=== PATIENT | male | born 1975 | race Caucasian/White ===

== ENCOUNTER 2024-06-22 18:32 | Emergency (ER) | payer MEDICAID, OTHER ==
[~2024-06-22] VITALS: Ht 188 cm; Wt 72.6 kg
--- NOTE | 2024-06-22 18:45 | ECG ---
[facility] Test Date: 2024-06-22 Test Time: 18:30:12 Pat Name: ELLE GARCIA Department: ER Room: [address] [place] [address] Gender: M Microbiological Analyst: TRACY : 1975 Requested By: MANUELA JUÁREZ Order Number: [id number] Reading MD: Nish Barbour Measurements Intervals [place] Rate: 101 P: 51 CO: 134 QRS: 26 QRSD: 110 T: 77 QT: 362 QTc: 470 Interpretive Statements Sinus tachycardia Electronically Signed On 06-27-2024 7:55:38 PDT by Nish Barbour Please click the below link to view image of tracing.
[2024-06-22] MEDS ORDERED: ONDANSETRON HCL 4 MG/2 ML VIAL IV ONE (19:00)
--- NOTE | 2024-06-22 19:24 | ED.PDOC ---
History of Present Illness HPI Comments This is a 49-year-old male who comes to the ED by EMS with chief complain of generalized weakness and hypotension. He has a past medical history relevant for Crohn's disease. Patient is a poor historian. Information was also gathered from his . They state that the patient has been experiencing worsening generalized weakness since last couple of weeks, he has had low appetite, nausea, vomiting, overall pain, shortness of breath at rest, also associated with chills, however, today he could not stand up due to the weakness that he was experiencing, he will also mentioned in having left hand pain as well as bilateral leg pain. Patient is not taking any medication for Crohn's disease since 2019, most of his previous abdominal surgeries were down the hill. Patient currently denies any chest pain, fevers. Time Seen by MD: 18:53 Reviewed Notes: Nurses Notes Allergies: Coded Allergies: NO KNOWN ALLERGIES (Unverified , 08/18/10) Information Source: Patient Mode of Arrival: EMS Severity: Severe Timing: Days Duration: Since onset Past Medical History Past Medical History (Other): Crohn's disease Surgical History (Other): Multiple abdominal surgeries due to complications of Crohn disease, last one was on ileostomy in 2012 Family History Family History: Reviewed,noncontributory to illness Social History Smoker: Non-Smoker Alcohol: Denies ETOH Use Drugs: Denies Drug Use Constitutional: reports: chills, fatigue, malaise, weakness; denies: diaphoresis, fever, sweats, others EENTM: denies: blurred vision, double vision, ear bleeding, ear discharge, ear drainage, ear pain, ear ringing, eye pain, eye redness, hearing loss, mouth pain, mouth swelling, nasal discharge, nose bleeding, nose congestion, nose pain, photophobia, tearing, throat pain, throat swelling, voice changes, others Respiratory: reports: SOB at rest; denies: cough, hemoptysis, orthopnea, shortness of breath, SOB with excertion, stridor, wheezing, others Cardiovascular: denies: chest pain, dizzy spells, diaphoresis, Dyspnea on exertion, edema, irregular heart beat, left arm pain, lightheadedness, palpitations, PND, syncope, others Gastrointestinal: reports: abdomen distended, abdominal pain, nausea, poor appetite, poor fluid intake, vomiting; denies: blood streaked bowels, constipated, diarrhea, dysphagia, difficulty swallowing, hematemesis, melena, rectal bleeding, rectal pain, others Genitourinary: denies: burning, dysuria, flank pain, frequency, hematuria, incontinence, penile discharge, penile sore, pain, testicle pain, testicle swel ling, urgency, others Neurological: denies: dizziness, fainting, headache, left sided numbness, left sided weakness, numbness, paresthesia, pre-existing deficit, right sided numbness, right sided weakness, seizure, speech problems, tingling, tremors, weakness, others Musculoskeletal: denies: back pain, gout, joint pain, joint swelling, muscle pain, muscle stiffness, neck pain, others Integumetry: reports: dryness, lesions, rash, wounds; denies: bruises, change in color, change in hair/nails, laceration, lumps, others Allergic/Immunocompromised: denies: Difficulty Healing, Frequent Infections, Hives, Itching, others Hematologic/Lymphatic: denies: anemia, blood clots, easy bleeding, easy bruisin g, swollen glands, others Endocrine: denies: excessive hunger, excessive sweating, excessive thirst, excessive urination, flushing, intolerance to cold, intolerance to heat, unexplained weight gain, unexplained weight loss, others Physical Exam General Appearance: Cachectic, Moderate Distress HEENT: Normal ENT Inspection, Pharynx Normal, TMs Normal Neck: Full Range of Motion, Non-Tender, Normal, Normal Inspection Respiratory: Chest Non-Tender, Lungs Clear, No Accessory Muscle Use, No Respiratory Distress, Normal Breath Sounds Cardiovascular: No Edema, No JVD, No Murmur, No Gallop, Normal Peripheral Pulses, Regular Rate/Rhythm Breast Exam: Deferred Gastrointestinal: Abnormal Bowel Sounds, Diffuse, Distended, No Organomegaly, No Pulsatile Mass, Soft, Tenderness, Other (Ileostomy) Genitalia: Deferred Pelvic: Deferred Rectal: Deferred Extremities: Calf tenderness, Decreased range of motion, Normal capillary refill, No pedal edema, Tender Neurologic: Abnormal Gait, Dizziness Cerebellar Function: NOT DONE Reflexes: NOT DONE Skin: Dry, Rash, Warm Lymphatic: No Adenopathy Was a procedure done? Was a procedure done?: No Differential Dx Considerations may include: Sepsis, colitis, IBD flare, UTI, bacteremia, cellulitis, hypovolemia, gastroenteritis, X-Ray, Labs, Meds, VS Vital Signs Date Time Temp Pulse Resp B/P (MAP) Pulse Ox O2 Delivery O2 Flow Rate FiO2 06/22/24 18:33 101 Lab Test 06/22/24 19:10 Range/Units White Blood Count 22.2 H 4.4-10.8 10^3/uL Red Blood Count 3.04 L 4.5-5.90 10^6/uL Hemoglobin 7.5 L 13.5-17.5 g/dL Hematocrit 23.8 L 41.0-53.0 % Mean Corpuscular Volume 78.5 L 80.0-100.0 fL Mean Corpuscular Hemoglobin 24.8 L 28.0-32.0 pg Mean Corpuscular Hemoglobin Concent 31.6 L 32.0-36.0 g/dL Red Cell Distribution Width 19.3 H 11.8-14.3 % Platelet Count 303 140-450 10^3/uL Mean Platelet Volume 6.8 L 6.9-10.8 fL Neutrophils (%) (Auto) 37.0-80.0 % Lymphocytes (%) (Auto) 10.0-50.0 % Monocytes (%) (Auto) 0.0-12.0 % Basophils (%) (Auto) 0.0-2.0 % Neutrophils # (Auto) 1.6-8.6 10 ^3/uL Lymphocytes # (Auto) 0.4-5.4 10 ^3/uL Monocytes # (Auto) 0-1.3 10 ^3/uL Differential Total Cells Counted Pending Neutrophils % (Manual) Pending Band Neutrophils % (Manual) Pending Lymphocytes % (Manual) Pending Monocytes % (Manual) Pending Eosinophils % (Manual) Pending Basophils % (Manual) Pending Metamyelocytes % (manual) Pending Myelocytes % (Manual) Pending Promyelocytes % (Manual) Pending Blast Cells % (Manual) Pending Reactive Lymphocytes Pending Platelet Estimate Pending Sodium Level 129 L 136-145 mmol/L Potassium Level 4.4 3.5-5.1 mmol/L Chloride Level 99 98-107 mmol/L Carbon Dioxide Level 17 L 20-31 mmol/L Anion Gap 13 5-15 Blood Urea Nitrogen 140 *H 9-23 mg/dL Creatinine 6.54 H 0.700-1.30 mg/dL Glomerular Filtration Rate Calc 10 >90 mL/min BUN/Creatinine Ratio 21.4 H 10.0-20.0 Serum Glucose 106 74-106 mg/dL Lactic Acid Level 1.9 0.4-2.0 mmol/L Calcium Level 8.5 L 8.7-10.4 mg/dL Troponin I High Sensitivity 7 </=54 ng/L B-Type Natriuretic Peptide 20.58 0-100 pg/mL Current Medications Medications (Trade) Dose Ordered Sig/Vargas Route Start Time Stop Time Status Last Admin Sodium Chloride 1,000 ml @ 1,000 mls/hr Q1H ONCE IV 06/22/24 19:00 06/22/24 19:59 DC 06/22/24 19:50 Patient was seen and examined, he appeared in moderate to severe distress due to overall pain, shortness of breath, generalized weakness. He has had some fluctuation in mentation, patient is likely septic, his blood pressure was on t he field around 50/40, on arrival to the ED was 81/58, later in dropped to 70s, 500 mL were given in the field, we will prescribe another L of NS, we will also order CBC, BMP, BNP, UA, UDS, blood culture, lactic acid, urine culture, chest x-ray, CT of the abdomen, IV Protonix, IV Zofran, we will continue [place]. [place] [address], hemoglobin is 7.5, GFR is 10, we will added another one L of NS, Rocephin IV as well, patient will be admitted for further management of sepsis Images Reviewed?: Images reviewed and evaluated by me Time of 1ST Reevaluation: 19:04 Reevaluation 1ST: Unchanged Time of 2ND Reevaluation: 20:14 Reevaluation 2ND: Unchanged Patient Education/Counseling: Diagnosis, Treatment Family Education/Counseling: Diagnosis, Treatment Departure 1 Departure Time of Disposition: 20:12 Impression: Primary Impression: Sepsis Additional Impressions: Hypovolemia Crohn's disease Severe anemia Disposition: 09 ADMITTED INPATIENT Condition: Guarded Critical Care Note Critical Care Time?: No Stability Stability form required: No Heart Score Heart Score: Heart Score Response (Comments) Value History Moderate Suspicious 1 EKG N/A 0 Age 45-64 1 Risk Factors No known risk factors 0 Troponin N/A 0 Total 2 CATHERINE VEGA RESIDENT Jun 22, 2024 19:24
[2024-06-22 19:26] LABS: Hematocrit 23.8 % (41.0-53.0); Hemoglobin 7.5 g/dL (13.5-17.5)
[2024-06-22 19:27] LABS: Mean Corpuscular Hemoglobin 24.8 pg (28.0-32.0); Mean Corpuscular Hgb Conc. 31.6 g/dL (32.0-36.0); Mean Corpuscular Volume 78.5 fL (80.0-100.0); Platelet Count (auto) 303 10^3/uL (140-450); Red Blood Cells 3.04 10^6/uL (4.5-5.90); Red Cell Distribution Width 19.3 % (11.8-14.3); White Blood Cell 22.2 10^3/uL (4.4-10.8)
[2024-06-22 19:36] LABS: Chloride 99 mmol/L (98-107); Potassium 4.4 mmol/L (3.5-5.1); Sodium 129 mmol/L (136-145)
[2024-06-22 19:37] LABS: Anion Gap 13 (5-15); Calcium 8.5 mg/dL (8.7-10.4); Carbon Dioxide 17 mmol/L (20-31)
[2024-06-22 19:42] LABS: BUN/Creatinine Ratio 21.4 (10.0-20.0); Glucose 106 mg/dL (74-106)
[2024-06-22] MEDS: SODIUM CHLORIDE 0.9% 1,000 ML IV ONE ×3 (19:50→22:30)
[2024-06-22 19:54] LABS: Band Neutrophils % (manual) 0; Basophils % (manual) 0 (0.0-2.0); Blast Cells 0; Eosinophils % (manual) 0 (0-7); Metamyelocytes % 0; Myelocytes % 0; Promyelocytes % 0; Reactive Lymphocytes 0
--- NOTE | 2024-06-22 19:54 | DVH ---
CHEST RADIOGRAPH Indication:sob Technique: Single frontal view of the chest was obtained Comparison: None FINDINGS: Lines and Tubes: None Lungs: No focal consolidation. Elevation of the left hemidiaphragm. Pleura: No effusion. No pneumothorax. Cardiomediastinal contours: Unremarkable Bones: No acute osseous abnormality. Old fracture deformity of right posterior 6th to 8th ribs IMPRESSION: No acute cardiopulmonary disease.
[2024-06-22 20:00] LABS: Blood Urea Nitrogen 140 mg/dL (9-23)
[2024-06-22] MEDS: PANTOPRAZOLE 40 MG/10 ML VIAL INJ IV ONE (20:09)
[2024-06-22 20:18] LABS: Lymphocytes % (manual) 6 (10.0-50.0); Monocytes % (manual) 4 (0-12); Platelet Estimate Adequate
[2024-06-22] MEDS: cefTRIAXone 1GM/50ML D5W 50 ML IV ONE (20:28)
--- NOTE | 2024-06-22 21:13 | DVH ---
Exam: CT CT AB PEL WO CON-NO ORAL OR IV History: abdominal pain, h/o ibd, ileostomy Comparison Study: None available at time of dictation. Technique: Multidetector CT of the abdomen and pelvis without contrast . Axial, coronal and sagittal multiplanar reformats were performed by the technologist on a separate workstation. Radiation Dose Information: CT Dose: CTDI volume is 9.33 mGy. Dose-length product is 602.48 mGy*cm Findings: The lung bases are clear. Elevated left hemidiaphragm . Partially visualized heart is unremarkable. Status post cholecystectomy. Mild splenomegaly with no focal splenic lesions. Liver, pancreas and adr enal glands unremarkable. Kidneys and ureters are unremarkable. Wall thickening of the urinary bladder with foci of air within the urinary bladder and mild fat stranding adjacent to the urinary bladder. Prostate is ill-defined m easuring about 1.9 x 2.9 cm . There is ill-defined area of soft tissue thickening with internal small cystic areas and foci of air extending from the right side of the prostate to the right perineal region. There is presacral absces s with foci of air and thickened wall measuring up to 3 by 11 cm with extension to the left of the re ctum and additional extension laterally to the left hip. Associated foci of air from the presacral ab scess extends to the left pelvic musculatures and left upper thigh There is scrotal wall edema with ill-defined hypodensity of the scrotal region and foci of air within the scrotal wall and right medial upper thigh. Midline buttock wall thickening with foci of air. Stomach is unremarkable. Small bowel loops are unremarkable. Appendix is not definitely visualized. Fluid-filled rectum. Minimal submucosal fatty infiltration of the proximal transverse colon and visua lized ascending colon with colostomy noted over the right lower abdominal quadrant. There is parastom al hernia containing small bowel loop without evidence of obstruction. No evidence of aortic aneurysm. Multiple subcentimeter mediastinal lymph nodes which may be reactive. Small fat containing paraumbilical hernia. The soft tissues unremarkable. Mild fat stranding with int ernal hyperdensities of the left lateral pelvis and hip with mild soft tissue edema of the upper thig hs mild edema posterior to the sacrum. No destructive osseous lesions are noted. IMPRESSION: Wall thickening of the urinary bladder with adjacent fat stranding. Recommend correlation with urinal ysisfor cystitis. Foci of air of the anterior urinary bladder which may be iatrogenic. Correlate for recent instrumentation. Presacral abscess with wall thickening extending to the left of the rectum. A fistulous tract can no t be excluded. There is additional lateral extension of the presacral abscess to the left hip region with subcutaneous air extending to the left lateral pelvic musculatures, left hip musculatures and le ft lateral upper thigh musculature. Ill-defined abscess wall thickening to the right of the prostate extending inferiorly to the perineal region. Scrotal soft tissue edema with foci of air within the wall. Diltiazem fascitis is within the differential. Right lower abdominal quadrant colostomy with parastomal hernia containing small bowel segment withou t evidence of obstruction.
[2024-06-22] MEDS: LORazepam 2MG/ML-1ML VIAL IV ONE (21:44)
[2024-06-22] MEDS ORDERED: NITROGLYCERIN 0.4 MG SL TAB SL PRN (22:30)
[2024-06-22] MEDS ORDERED: SODIUM CHLORIDE 0.9% 1,000 ML IV SCH (22:30)
[2024-06-22] MEDS ORDERED: ONDANSETRON HCL 4 MG/2 ML VIAL IV PRN (22:30)
[2024-06-22] MEDS ORDERED: HYDROcodone-ACET 5/325MG TAB PO PRN (22:30)
[2024-06-22] MEDS ORDERED: MORPHINE SULFATE INJ 2 MG/ml SYRG IV PRN ×2 (22:30)
[2024-06-22] MEDS ORDERED: ACETAMINOPHEN 325 MG TAB PO PRN (22:30)
--- NOTE | 2024-06-22 22:52 | DVHHPRES ---
History of Present Illness Resident Creating Document: LEVI RIVERO RESIDENT History of Present Illness This is a 49-year-old male who comes to the ED by EMS with chief complain of generalized weakness and hypotension. He has a past medical history relevant for Crohn's disease. Patient is a poor historian. Information was also gathered from his . They state that the patient has been experiencing worsening generalized weakness since last couple of weeks, he has had low appetite, nausea, vomiting, overall pain, shortness of breath at rest, also associated with chills, however, today he could not stand up due to the weakness that he was experiencing, he was also mentioned in having left hand pain as well as bilateral leg pain. Patient is not taking any medication for Crohn's disease since 2019, most of his previous abdominal surgeries were down the hill. Patient currently denies any chest pain, fevers. Past Medical History Crohn's disease Past Surgical History Multiple abdominal surgeries due to complications of Crohn disease, last one was on ileostomy in 2012 Smoke: No ALCOHOL: none Drugs: None Lives: with Family Review of Systems Constitutional: Yes: Chills, Weakness; No: Fever, Sweats, Malaise, Other Eyes: No: Pain, Vision change, Conjunctivae inflammation, Eyelid inflammation, Other, Redness ENT: No: Ear pain, Ear discharge, Nose pain, Nose discharge, Nose congestion, Mouth pain, Mouth swelling, Throat pain, Throat swelling, Other Respiratory: Shortness of breath; No: Cough, Dry, SOB with excertion, Wheezing, Hemoptysis, Pleuritic Pain, Sputum, Wheezing, Other Cardiovascular: No: Chest Pain, Palpitations, Orthopnea, Paroxysmal Noc. Dyspnea, Edema, Lt Headedness, Other Gastrointestinal: Abdominal Pain; No: Nausea, Vomiting, Diarrhea, Constipation, Melena, Hematochezia, Other Genitourinary: No Dysuria, No Frequency, No Incontinence, No Hematuria, No Retention, No Other Musculoskeletal: hand pain, leg pain; No: other, neck pain, shoulder pain, arm pain, back pain, foot pain Skin: No: Rash, Lesions, Jaundice, Bruising, Other Neurological: No: Weakness, Numbness, Incoordination, Change in speech, Confusion, Seizures, Other Allergies: Coded Allergies: NO KNOWN ALLERGIES (Unverified , 08/18/10) Medications Current Medications Medications Dose Ordered Sig/Vargas Route Start Time Stop Time Status Last Admin Dose Admin Iron Sucrose 110 ml @ 110 mls/hr DAILY@1200 IV 06/23/24 12:00 06/27/24 12:59 Norepinephrine Bitartrate 250 ml @ 3.75 mls/hr Q24H IV 06/22/24 21:00 Sodium Chloride 1,000 ml @ 120 mls/hr Q8H20M IV 06/22/24 22:30 Acetaminophen 325 mg Q4HP PRN PO 06/22/24 22:30 Acetaminophen/ Hydrocodone Bitart 1 tab Q4HP PRN PO 06/22/24 22:30 Ondansetron HCl 4 mg Q4HP PRN IV 06/22/24 22:30 Enoxaparin Sodium 40 mg DAILY SC 06/23/24 10:00 UNV Morphine Sulfate 2 mg Q4HPRN PRN IV 06/22/24 22:30 Nitroglycerin 0.4 mg Q5MINP PRN SL 06/22/24 22:30 Morphine Sulfate 2 mg Q30M PRN IV 06/22/24 22:30 Meropenem 50 ml @ 17 mls/hr Q12HR IV 06/23/24 10:00 UNV Pantoprazole Sodium 40 mg DAILY IV 06/23/24 10:00 Exam Vital Signs Vital Signs Date Time Temp Pulse Resp B/P (MAP) Pulse Ox O2 Delivery O2 Flow Rate FiO2 06/22/24 22:23 108 10 82/43 (56) 97 06/22/24 21:16 Room Air* 0 21 06/22/24 19:51 97.9 97.9 General Appearance: Alert, Oriented X3, Cooperative, moderate distress HEENT: Atraumatic, PERRLA, EOMI, Mucous membr. moist/pink Respiratory: Clear to auscultation, Normal air movement Cardiovascular: Regular rate, Normal S1, Normal S2, No murmurs Abdominal: Normal bowel sounds (Abdomen is distended, multiple scar alyssa from previous abdominal surgery and colostomy bag on the right side), No tenderness, No hepatospenomegaly, No masses, Other (Abdomen is distended, multiple scar adrian from previous abdominal surgery and colostomy bag on the right side) Extremities: No clubbing, No cyanosis, No edema, Normal pulses, No tenderness/swelling Skin: No rashes, No breakdown, No significant lesion Neuro: Normal gait, Normal speech, Strength at 5/5 X4 ext, Normal tone, Sensation intact Psych/Mental Status: Mental status NL, Mood NL Labs/Xrays Labs Test 06/22/24 20:45 06/22/24 19:10 Range/Units Ammonia < 10 L 11-32 umol/L White Blood Count 22.2 H 4.4-10.8 10^3/uL Red Blood Count 3.04 L 4.5-5.90 10^6/uL Hemoglobin 7.5 L 13.5-17.5 g/dL Hematocrit 23.8 L 41.0-53.0 % Mean Corpuscular Volume 78.5 L 80.0-100.0 fL Mean Corpuscular Hemoglobin 24.8 L 28.0-32.0 pg Mean Corpuscular Hemoglobin Concent 31.6 L 32.0-36.0 g/dL Red Cell Distribution Width 19.3 H 11.8-14.3 % Platelet Count 303 140-450 10^3/uL Mean Platelet Volume 6.8 L 6.9-10.8 fL Neutrophils (%) (Auto) 37.0-80.0 % Lymphocytes (%) (Auto) 10.0-50.0 % Monocytes (%) (Auto) 0.0-12.0 % Basophils (%) (Auto) 0.0-2.0 % Neutrophils # (Auto) 1.6-8.6 10 ^3/uL Lymphocytes # (Auto) 0.4-5.4 10 ^3/uL Monocytes # (Auto) 0-1.3 10 ^3/uL Differential Total Cells Counted 100.0 100 Neutrophils % (Manual) 90 H 37.0-80.0 Band Neutrophils % (Manual) 0 Lymphocytes % (Manual) 6 L 10.0-50.0 Monocytes % (Manual) 4 0-12 Eosinophils % (Manual) 0 0-7 Basophils % (Manual) 0 0.0-2.0 Metamyelocytes % (manual) 0 Myelocytes % (Manual) 0 Promyelocytes % (Manual) 0 Blast Cells % (Manual) 0 Reactive Lymphocytes 0 Platelet Estimate Adequate Sodium Level 129 L 136-145 mmol/L Potassium Level 4.4 3.5-5.1 mmol/L Chloride Level 99 98-107 mmol/L Carbon Dioxide Level 17 L 20-31 mmol/L Anion Gap 13 5-15 Blood Urea Nitrogen 140 *H 9-23 mg/dL Creatinine 6.54 H 0.700-1.30 mg/dL Glomerular Filtration Rate Calc 10 >90 mL/min BUN/Creatinine Ratio 21.4 H 10.0-20.0 Serum Glucose 106 74-106 mg/dL Lactic Acid Level 1.9 0.4-2.0 mmol/L Calcium Level 8.5 L 8.7-10.4 mg/dL Troponin I High Sensitivity 7 </=54 ng/L B-Type Natriuretic Peptide 20.58 0-100 pg/mL Assessment/Plan Assessment/Plan Assessment and plan: # septic shock likely due to presacral abscess - On admission pulse was 101, blood pressure was 71/36, and respiratory rate was 15 - Started Levophed Levophed drip at 2 microgram/minute per protocol - CT scan of the abdomen pelvis revealed Presacral abscess with wall thickening extending to the left of the rectum. A fistulous tract can not be excluded. There is additional lateral extension of the presacral abscess to the left hip region with subcutaneous air extending to the left lateral pelvic musculatures, left hip musculatures and left lateral upper thigh musculature.Ill-defined abscess wall thickening to the right of the prostate extending inferiorly to the perineal region. Scrotal soft tissue edema with foci of air within the wall. - IV meropenem 500 mg 12 hourly - IV vancomycin as per pharmacy - IV normal saline at 120 mL/hour - IV morphine 2 mg q.4 p.r.n. - IV ondansetron 4 mg q.4 p.r.n. # Chronic microcytic hypochromic anemia likely due to iron deficiency - IV iron daily. # CELESTINO likely due to septic shock - IV normal saline at 120 mL/hour - Monitor BMP # PUD prophylaxis - IV Protonix 40 mg daily # DVT prophylaxis - Lovenox 40 mg sc daily Case discussed with Dr. Peoples and surgeon Dr. Ramsey recommended to transfer the patient to higher level of care for possible colorectal surgery. Plan discussed with: Patient, Other My Orders Orders - LEVI RIVERO RESIDENT Procedure Category Date Status Time Admit ADMIT 06/22/24 Transmitted 22:22 Allergies ROXIE 06/22/24 In Process 22:22 Code Status CODE 06/22/24 Transmitted 22:22 Sodium Chloride 0.9% PHA 06/22/24 In Process 22:30 Oxygen Per Hour RT 06/22/24 Transmitted 22:22 Acetaminophen Tablet PHA 06/22/24 In Process (Tylenol Tablet) 22:30 Hydrocodone-Acet PHA 06/22/24 In Process 5/325mg Tab ([place] 22:30 Ondansetron Hcl PHA 06/22/24 In Process (Zofran) 22:30 Enoxaparin Sodium PHA 06/23/24 Logged (Lovenox) 10:00 Npo (Nothing By DIET 06/23/24 Transmitted Mouth) Diet Breakfast Morphine Sulfate PHA 06/22/24 In Process Injection 22:30 Nitroglycerin PHA 06/22/24 In Process Sublingual (Ntrostat 22:30 Morphine Sulfate PHA 06/22/24 In Process Injection 22:30 Oxygen By Nasal RT 06/22/24 Transmitted Cannula 22:22 Stat Ekg For Chest ROXIE 06/22/24 In Process Pain 22:22 Notify Md Of Changes ROXIE 06/22/24 In Process From Base 22:22 Poultry Field Service Technician For ROXIE 06/22/24 In Process 24 Hours 22:22 Emergency Dysrhythmia ROXIE 06/22/24 In Process Protocol 22:22 Rhythm Strips Once ROXIE 06/22/24 In Process Every Shift 22:22 Meropenem 500mg Ivpb PHA 06/22/24 In Process (Merrem 500mg/Ns) 22:30 Meropenem 500mg Ivpb PHA 06/23/24 Logged (Merrem 500mg/Ns) 10:00 Pantoprazole PHA 06/23/24 In Process (Protonix) 10:00 * Surgical Consult CONS 06/22/24 Transmitted PTPTT LAB 06/22/24 In Process 22:34 Date of Service: Jun 22, 2024 Billing Provider: HARRISON PEOPLES MD Common Visit Codes: 66922-POAPIQA INP/OBS CARE (HIGH) LEVI RIVERO RESIDENT Jun 22, 2024 22:52 HARRISON PEOPLES MD Jun 25, 2024 08:21
[2024-06-22 23:08] LABS: INR 1.27 (0.9-1.15); Partial Thromboplastin Time 29.3 SEC (24.5-34.5); Prothrombin Time 13.2 sec (9.3-11.8)
[2024-06-22] MEDS: KETAMINE 50mg/ML 10ml Vial 10 ML ONE (23:08)
[2024-06-22] MEDS: KETAMINE 50mg/ML 1ml syringe IM ONE (23:08)
[2024-06-22] MEDS: NOREPINEPHRINE 8 MG/250ML KIT 250 ML IV SCH (23:52)
[2024-06-23] MEDS: CLINDAMYCIN 900MG IV 50 ML IV ONE (00:04)
[2024-06-23] MEDS: MEROPENEM 500MG IVPB 50 ML IV ONE (00:08)
[2024-06-23] MEDS ORDERED: PROPOFOL 100 ML IV ONE (00:11)
[2024-06-23] MEDS ORDERED: ROCURONIUM 10MG/ML 10ML VIAL IV ONE ×2 (00:11→00:30)
[2024-06-23] MEDS ORDERED: ETOMIDATE (2MG/ML) 20ML VIAL IV ONE ×2 (00:11→00:30)
[2024-06-23] MEDS ORDERED: PROPOFOL 100 ML IV SCH (00:30)
[2024-06-23 00:44] VITALS: BP 110/59; PULSE 106; RESP 18; TEMP 98.1; O2SAT 100
--- NOTE | 2024-06-23 00:45 | ED.PDOC ---
Was a procedure done? Was a procedure done?: Yes Sedation Sedation?: No Intubation Indication: Altered Mental Status Pretreated with: Other (Etomidate) Medicated with: Other (Rocuronium) Intubation Approach: Orotracheal Intubation size: cm (8) Informed consent obtained: No Risks/benefits/alt described: No Departure 1 Departure Time of Disposition: 00:42 (Just prior to been and I was made aware of this patient by the admitting resident head of the patient wants to complicated be admitted here. I have supervised the residents central line insertion. Upon my evaluation patient was found to be in septic shock with necrotizing fasciitis of the left thigh as well as Christo's gangrene of the scrotum. Patient had worsening altered mental status. I intubate the patient emergently. Started patient emergently on antibiotics and IV pressors. I discussed with [facility] who accepted patient as an emergent transfer. I ordered a helicopter. Patient is stable for transport.) Impression: Primary Impression: Sepsis Qualified Codes: A41.9 - Sepsis, unspecified organism; R65.21 - Severe sepsis with septic shock; N17.9 - Acute kidney failure, unspecified Additional Impressions: Crohn's disease Qualified Codes: K50.80 - Crohn's disease of both small and large intestine without complications Severe anemia Hypovolemia Christo gangrene of scrotum Necrotizing fasciitis of multiple sites Disposition: 02 SHORT TERM HOSPITAL Condition: Critical Critical Care Note Critical Care Time?: Yes Critical care comment: Septic shock Authorized and Performed by: Leonides Lance MD Total critical care time: Approximately 55 minutes Due to a high probability of clinically significant, life threatening deterioration, the patient required my highest level of preparedness to intervene emergently and I personally spent this critical care time directly and personally managing the patient. This critical care time included obtaining a history; examining the patient; pulse oximetry; ordering and review of studies; arranging urgent treatment with development of a management plan; evaluation of patient's response to treatment; frequent reassessment; and, discussions with other providers. This critical care time was performed to assess and manage the high probability of imminent, life-threatening deterioration that could result in multi-organ failure. It was exclusive of separately billable procedures and treating other patients and teaching time. Please see my other sections and the rest of the note for further information on patient assessment and treatment. LEONIDES LANCE MD Jun 23, 2024 00:45
[2024-06-23 01:23] LABS: Base Excess -14.9 mmol/L (-2.0-3.0)
[2024-06-23] MEDS ORDERED: VANCOMYCIN 1GM/200ML PREMIX 200 ML IV ONE (01:30)
--- NOTE | 2024-06-23 02:28 | DVH ---
EXAM: XY CHEST PORTABLE CLINICAL HISTORY: s/p intubation and cental line TECHNIQUE: Single AP view of the chest WID: COMPARISON: XY CHEST PORTABLE on DOS: 06/22/24 FINDINGS: Lines and tubes: Endotracheal tube projects 4.7 cm above the kelsie. Right IJ central venous catheter projects over the cavoatrial junction. Gastric tube in place with the tip of the tubing projecting at the gastroesophageal junction in the side hole projecting over the lower esophagus. Chest: The heart size and pulmonary vasculature is within normal limits. No pleural effusion, pneumothorax, or consolidation. The osseous structures are grossly intact. There is a displaced posterior right 5th rib fracture defo rmity of indeterminate chronicity. IMPRESSION: 1. Placement of right IJ central venous catheter, endotracheal tube, and gastric tube as described. The gastric tube should be advanced at least 10 cm for more optimal positioning. 2. No pneumothorax.
[2024-06-23] MEDS ORDERED: ENOXAPARIN SOD 40 MG/0.4 ML SYRINGE SC SCH (10:00)
[2024-06-23] MEDS ORDERED: MEROPENEM 500MG IVPB 50 ML IV SCH (10:00)
[2024-06-23] MEDS ORDERED: PANTOPRAZOLE 40 MG/10 ML VIAL INJ IV SCH (10:00)
[2024-06-23] MEDS ORDERED: VANCOMYCIN 1GM/200ML PREMIX 200 ML IV SCH (10:00)
[2024-06-23] MEDS ORDERED: IRON SUCROSE COMPLEX 110 ML IV SCH (12:00)
== END 2024-06-23 01:15 | disposition short-term general hospital (02) ==
LOC: ER 18:32 → EDBD 18:32 → UNDOADMIN 22:22 → TELE 22:22 → ER 06-23 01:15
DX: A41.9 Sepsis, unspecified organism (principal); K50.819 Crohn's disease of both small and large intestine with unspecified complications; D64.9 Anemia, unspecified; E86.1 Hypovolemia
CPT/HCPCS: 31500; 36415; 36600; 71045; 74176; 80048; 82140; 82805; 82962; 83605; 83880; 84484; 85007; 85027; 85610; 85730; 87040; 93005; 96361; 96365; 96367; 96368; 96375; 99291; J0696; J2060; J2185; J2470; J2704; J3490; J7030; G0378